=== PATIENT | female | born 2000 | race Caucasian/White ===

== ENCOUNTER → 2021-05-10 | Outpatient (CLI) | payer SELFPAY | END | disposition home or self-care (01) | LOC: ECOV 14:32 | PROVIDERS: ATTEND Internal Medicine Hospice and Palliative Medicine | DX: U07.1 COVID-19 (principal) | CPT/HCPCS: 36415 ==

== ENCOUNTER 2022-07-29 10:36 | Emergency (ER) | payer OTHER ==
[~2022-07-29] VITALS: Ht 182.9 cm; Wt 86.2 kg
[2022-07-29 10:36] VITALS: BP_SYST 148
--- NOTE | 2022-07-29 10:38 | NUR ---
BROUGHT BACK TO BED #3 AND TRIAGED. REPORT GIVEN TO BECCA
--- NOTE | 2022-07-29 10:40 | NUR ---
BIB SELF FROM HOME WITH C/O NAUSEA AND VOMITTING SINCE LAST NIGHT. PT STATES SHE HAS ABN PAIN - 08/17. HX - N/A PT AAXO4, VSS, NAD, BREATHING IS EVEN AND UNLABORED. PT AMBULATORY WITH STEADY GAIT. PT ON FINANCE AND ADMINISTRATION MANAGER SHOWING NSR. HOB ELEVATED, SIDE RIALS UP, BED IN LOWEST POSITION,CALL LIGHT WITHIN REACH. SAFETY PRECUATIONS AND COMFORT MEASURES IN PLACE. PENDING MD LEMUS AND ORDERS.
--- NOTE | 2022-07-29 10:42 | NUR ---
AT BEDSIDE EXAMINING THE PT.
[2022-07-29] MEDS ORDERED: ONDANSETRON 4 MG ODT TAB PO ONE (11:00)
[2022-07-29] MEDS ORDERED: LOPE2CAP PO (11:15)
[2022-07-29] MEDS ORDERED: ONDA8TAB60 PO (11:15)
--- NOTE | 2022-07-29 11:25 | NUR ---
PT MEDICALLY CLEARED FOR D/C. D/C INSTRUCTIONS GIVEN TO PT. PT TO FOLLOW-UP WITH PCP WITHIN 1-3 DAYS AND TO RETURN TO ED FOR WORSENING S/S. PT VERBALIZED UNDERSTANDING. PT AAOX4, NAD, VSS, WRITSTBAND REMOVED. PT AMBULATORY WITH STEADY GAIT. PT LEFT WITH ALL BELONGINGS.
[2022-07-29 11:26] VITALS: BP_SYST 117
== END 2022-07-29 11:25 | disposition home or self-care (01) ==
LOC: SED 10:36
DX: R10.13 Epigastric pain (principal); R19.7 Diarrhea, unspecified; R11.2 Nausea with vomiting, unspecified; Z79.899 Other long term (current) drug therapy
CPT/HCPCS: 99283; Q0162

== ENCOUNTER 2022-10-24 13:28 | Emergency (ER) | payer OTHER ==
[~2022-10-24] VITALS: Ht 182.9 cm; Wt 83.9 kg
[~2022-10-24 13:28] MED LIST: LOPE2CAP PO; ONDA8TAB60 PO
[2022-10-24 13:30] VITALS: BP_SYST 134
--- NOTE | 2022-10-24 13:32 | NUR ---
BROUGHT BACK TO HALLWAY BED AND TRIAGED. REPORT GIVEN TO LENCHO
--- NOTE | 2022-10-24 13:40 | NUR ---
DR HOWARD TO BEDSIDE FOR EVALUATION
[2022-10-24] MEDS ORDERED: DEC4 PO ×2 (13:43→20:04)
[2022-10-24] MEDS ORDERED: AUG875 PO ×2 (13:43→20:04)
--- NOTE | 2022-10-24 13:44 | NUR ---
Patient given written and verbal discharge instructions and verbalizes understanding. ER MD discussed with patient the results and treatment provided. Patient in stable condition. ID arm band removed. Rx of AUGMENTIN, DECADRON given. Patient educated on pain management and to follow up with PMD. Pain Scale 0/10. Opportunity for questions provided and answered. Medication side effect fact sheet provided.
== END 2022-10-24 13:44 | disposition home or self-care (01) ==
LOC: SED 13:28
DX: J02.9 Acute pharyngitis, unspecified (principal); R50.9 Fever, unspecified; Z79.899 Other long term (current) drug therapy
CPT/HCPCS: 99283